=== PATIENT | female | born 1950 | race Caucasian/White ===

== ENCOUNTER 2020-07-06 11:28 | Inpatient (IN) | payer MEDICARE ==
[2020-07-06] VITALS (329 sets, daily range): BP systolic 93–163; BP diastolic 52–114; PULSE 67–109; TEMP 97.9–98.4; O2SAT 61–100
[~2020-07-06] VITALS: Ht 157.5 cm; Wt 49.5 kg
--- NOTE | 2020-07-06 11:40 | NUR ---
Arrives to ICU 4 via [facility] Transferred to bed, monitors applied. Sits up in tri-pod position, complains of back pain. Denies CP at this time.
[2020-07-06] MEDS ORDERED: CRESTOR 10MG10 MG PO (13:07)
[2020-07-06] MEDS ORDERED: PLENDIL 5MG TAB5 MG PO (13:10)
[2020-07-06] MEDS ORDERED: GLUCOTROL10 MG PO (13:13)
[2020-07-06] MEDS ORDERED: NORCO 325 MG-101 TAB PO ×2 (13:14)
[2020-07-06] MEDS ORDERED: IMDUR 30MG30 MG/TAB PO (13:15)
[2020-07-06] MEDS ORDERED: GLUCOPHAGE1000 MG PO (13:15)
[2020-07-06] MEDS ORDERED: NITROSTAT0.4 MG/TAB SL (13:16)
[2020-07-06] MEDS ORDERED: PLAVIX 75MG TAB75 MG PO (13:16)
[2020-07-06] MEDS ORDERED: PROTONIX 40MG T40 MG PO (13:17)
[2020-07-06] MEDS ORDERED: LASIX 40MG TABL40 MG PO (13:18)
[2020-07-06] MEDS ORDERED: CATAPRES 0.1MG0.1 MG PO (13:18)
[2020-07-06] MEDS ORDERED: VENTOLIN0.09 MG IH (13:19)
[2020-07-06 14:31] LABS: BASO # 0.1 (0.0-0.2); BASO % 1.2 % (0.0-2.0); EOS # 0.1 (0.0-0.7); EOS % 0.5 % (0-4.0); GRAN # 8.8 (1.4-6.5); GRAN % 76.7 % (42.2-75.2); HEMOGLOBIN 11.4 g/dl (12.5-16.0); LYMPH # 2.1 (1.2-3.4); LYMPH % 17.9 % (20.0-51.0); MEAN CELL VOLUME 84 fl (80.0-100.0); MEAN CORPUSCULAR HEMOGLOBIN 27 pg (27.0-31.0); MEAN CORPUSCULAR HGB CONC 32 g/dl (33.0-37.0); MEAN PLATELET VOLUME 8.7 fl (7.4-10.4); MONO # 0.4 (0.1-0.6); MONO % 3.4 % (1.7-9.3); PLATELET COUNT 362 K/mm3 (130-400); RED BLOOD COUNT 4.28 M/mm3 (4.10-5.30); REDCELL DISTRIBUTION WIDTH-CV 15.5 % (11.5-14.5)
[2020-07-06 14:32] LABS: HEMATOCRIT 36.1 % (37.0-47.0)
[2020-07-06 14:36] LABS: INR 1.2 (0.8-3.0); PROTHROMBIN TIME 13.2 SECONDS (9.7-12.8)
[2020-07-06 14:38] LABS: PARTIAL THROMBOPLASTIN TIME 25.8 SECONDS (26.0-37.0)
[2020-07-06 14:39] LABS: ALBUMIN 3.7 gm/dL (3.5-5.0); BILIRUBIN,TOTAL 0.6 mg/dL (0.0-1.0); CALCIUM 8.6 mg/dL (8.4-10.2); CHOLESTEROL RISK RATIO 2.7; CREATININE, serum 0.66 (0.52-1.25); MAGNESIUM 1.2 mg/dL (1.6-2.3); POTASSIUM 3.5 mmol/L (3.4-5.0); TOTAL PROTEIN 6.4 gm/dL (6.4-8.2)
[2020-07-06 14:53] LABS: TROPONIN-I 3.47 ng/mL (0.000-0.035)
[2020-07-07] VITALS (470 sets, daily range): BP systolic 104–151; BP diastolic 68–103; PULSE 61–98; TEMP 97.9–98.2; O2SAT 67–100
[2020-07-07 05:36] LABS: CALCIUM 8.3 mg/dL (8.4-10.2); CREATININE, serum 0.74 (0.52-1.25); MAGNESIUM 2.5 mg/dL (1.6-2.3); POTASSIUM 3.8 mmol/L (3.4-5.0)
[2020-07-07 05:55] LABS: TROPONIN-I 3.07 ng/mL (0.000-0.035)
--- NOTE | 2020-07-07 10:00 | NUR ---
To laborer steel handling via bed with RN x1.
--- NOTE | 2020-07-07 12:15 | NUR ---
Returns to room from with RN x1 at side. Report updated on arrival. Patient alert and awake, complaining of back and rib pain. TR band in place, minimal bruising noted but no active bleeding noted
[2020-07-08] VITALS (602 sets, daily range): BP systolic 97–134; BP diastolic 63–89; PULSE 58–86; TEMP 97–98.7; O2SAT 33–100
--- NOTE | 2020-07-08 07:40 | NUR ---
pt to laboratory sample carrier at this time via bed with laboratory sample carrier RN x2.
--- NOTE | 2020-07-08 08:26 | NUR ---
SEE MERGE FOR ALL MEDICATION ADMINISTRATION TIMES, INTRA AND POST SEDATION ASSESSMENTS
--- NOTE | 2020-07-08 09:30 | NUR ---
PT RETURN FROM STORE ADMINISTRATIVE ASSISTANT AT THIS TIME. BEDSIDE REPORT RECEIVED FROM FLORA BRYANT. PT ALERT/ORIENTED X4. DRESSING IN PLACE TO RIGHT WRIST INTACT AND ASSESSED WITH STORE ADMINISTRATIVE ASSISTANT RN ON ARRIVAL TO ROOM. PT REQUESTING PAIN MEDICATION. PRN DILAUDID ADMINISTERED PER EMAR. VS WNL.
--- NOTE | 2020-07-08 11:27 | NUR ---
Dancing Master met with patient to discuss discharge planning. Patient is from [place], [place] but is here in [place] staying with her daughter, Trisha (ph#[phone]) who lives in [facility]. Patient states she plans on moving to [place] soon. Patient does not have primary care established here in [place] but was open to being set up with a physician in [place]. Patient utilizes [facility] in [place] for medications. Patient has a walker but states she does not need it. Patient reports independence with ADLS. Patient reports she lost her in February and has five children. Elsie Rico (ph#[phone]), Jhon Lantigua, Dionicio Lantigua, and Floyd Lantigua. Patient states her three sons have nothing to do with her. SW spoke with patient about DPOA-HC and patient would like to designate her two daughters, Trisha and Elsie. Patient states she does not want her sons making any decisions for her. SW assisted patient in completing DPOA-HC form and patient verbalized understanding of what she was signing. DK and RNJackie provided witness signature. DK provided original and copies to patient, then placed copy in chart. DK updated contact sheet on patient's chart to include Elsie and noted that Trisha and Elsie are patient's DPOA-HC. DK notifed FLORA Mejia of update on contact sheet. Patient states she will return to Trisha's home upon discharge. DK contacted patient's daughter, Trisha to review discharge plan. Trisha is in agreement with patient returning home with her upon discharge. Trisha inquired about patient applying for [place] Medicaid as patient currently has [place] Medicaid. DK advised Trisha that patient can apply for [place] Medicaid once she moves to [place]. SW will continue to follow for discharge needs. Trisha is in agreement
--- NOTE | 2020-07-08 14:30 | NUR ---
NITRO GTT STOPPED AT THIS TIME D/T HYPOTENSION. BP 99/68, HR 63. PT DENIES CP AT THIS TIME.
[2020-07-09] VITALS (335 sets, daily range): BP systolic 99–122; BP diastolic 57–70; PULSE 55–69; TEMP 97.6–98; O2SAT 70–100
[2020-07-09 05:40] LABS: BASO % 0.2 % (0.0-2.0); EOS % 0.2 % (0-4.0); GRAN # 8.6 (1.4-6.5); GRAN % 68.5 % (42.2-75.2); HEMOGLOBIN 10.8 g/dl (12.5-16.0); LYMPH # 3.2 (1.2-3.4); LYMPH % 25.2 % (20.0-51.0); MEAN CELL VOLUME 85 fl (80.0-100.0); MEAN CORPUSCULAR HEMOGLOBIN 27 pg (27.0-31.0); MEAN CORPUSCULAR HGB CONC 31 g/dl (33.0-37.0); MEAN PLATELET VOLUME 9.3 fl (7.4-10.4); MONO # 0.7 (0.1-0.6); MONO % 5.6 % (1.7-9.3); PLATELET COUNT 341 K/mm3 (130-400); RED BLOOD COUNT 4.07 M/mm3 (4.10-5.30); REDCELL DISTRIBUTION WIDTH-CV 15.6 % (11.5-14.5)
[2020-07-09 05:43] LABS: CALCIUM 8.7 mg/dL (8.4-10.2); CREATININE, serum 0.98 (0.52-1.25); POTASSIUM 3.6 mmol/L (3.4-5.0)
[2020-07-09 05:46] LABS: HEMATOCRIT 34.4 % (37.0-47.0)
--- NOTE | 2020-07-09 13:50 | NUR ---
Patient spoke with, FLORA Trujillo as patient is ready to be discharged today. Patient is going to have a follow up appointment scheduled with Cardiology. Patient will be returning to [place] in August for a short time before moving back to [place]. SW met with patient to discuss follow up for primary care and possibly home health. Patient is open to having primary care set up possibly in [place] once she returns to [place] permanently. Patient had an exercise oximetry completed and will not require home oxygen at discharge.
[2020-07-09] MEDS ORDERED: ASPIRIN E.C. 8181 MG PO (14:25)
[2020-07-09] MEDS ORDERED: EFFIENT5 MG PO (14:25)
[2020-07-09] MEDS ORDERED: ZEBETA 5MG5 MG PO (14:25)
[2020-07-09] MEDS ORDERED: ZESTRIL 5MG5 MG PO (14:25)
== END 2020-07-09 15:00 | disposition home or self-care (01) | DRG 246 ==
LOC: ICU 11:28
PROVIDERS: Physician Assistant; ADMIT Internal Medicine
PROC: 027135Z Dilation of Coronary Artery, Two Arteries with Two Drug-eluting Intraluminal Devices, Percutaneous Approach (ICD-10-PCS; principal; 2020-07-08)
PROC: 4A023N7 Measurement of Cardiac Sampling and Pressure, Left Heart, Percutaneous Approach (ICD-10-PCS; 2020-07-08)
PROC: B2111ZZ Fluoroscopy of Multiple Coronary Arteries using Low Osmolar Contrast (ICD-10-PCS; 2020-07-08)
PROC: B2181ZZ Fluoroscopy of Left Internal Mammary Bypass Graft using Low Osmolar Contrast (ICD-10-PCS; 2020-07-08)
DX: I21.4 Non-ST elevation (NSTEMI) myocardial infarction (principal); J96.01 Acute respiratory failure with hypoxia; I50.23 Acute on chronic systolic (congestive) heart failure; M48.00 Spinal stenosis, site unspecified; I25.10 Atherosclerotic heart disease of native coronary artery without angina pectoris; I11.0 Hypertensive heart disease with heart failure; E11.9 Type 2 diabetes mellitus without complications; K21.9 Gastro-esophageal reflux disease without esophagitis; I25.5 Ischemic cardiomyopathy; J44.9 Chronic obstructive pulmonary disease, unspecified; E83.42 Hypomagnesemia; E87.6 Hypokalemia; D72.829 Elevated white blood cell count, unspecified; E78.5 Hyperlipidemia, unspecified; F17.210 Nicotine dependence, cigarettes, uncomplicated; Z79.891 Long term (current) use of opiate analgesic; Z79.84 Long term (current) use of oral hypoglycemic drugs; Z79.02 Long term (current) use of antithrombotics/antiplatelets; Z95.5 Presence of coronary angioplasty implant and graft; Z88.1 Allergy status to other antibiotic agents; Z95.1 Presence of aortocoronary bypass graft; Z95.810 Presence of automatic (implantable) cardiac defibrillator; I08.3 Combined rheumatic disorders of mitral, aortic and tricuspid valves
CPT/HCPCS: 99223-AI; 99232-AI; 99233-AI; 99239; C9604; J1170; J1644; J1815; J1940; J2250; J2405; J3010; J3475; J7030; J7512; Q9967

== ENCOUNTER 2021-06-11 16:50 | Inpatient (IN) | payer MEDICARE ==
[~2021-06-11] VITALS: Ht 157.5 cm; Wt 52.4 kg
[2021-06-11] VITALS (157 sets, daily range): BP systolic 122–127; BP diastolic 84–87; PULSE 85–87; TEMP 96.5–98.5; O2SAT 95–100
[~2021-06-11 16:50] MED LIST changes: -AMOXICILLIN 8751 TAB PO; -ENTRESTO 24 MG1 EACH PO; -HCTZ12.5TAB PO; -MYCELEX10 MG/TAB MM; -RT ADVAIR 128 DISKUS IH; -TRULICITY0.75 MG/0. SQ; -ZOFRAN ODT4 MG PO
--- NOTE | 2021-06-11 17:09 | NUR ---
MD Niko notified of pt arrival to ICU 6
[2021-06-11 17:46] LABS: BASO % 0.1 % (0.0-2.0); EOS % 0.3 % (0-4.0); GRAN # 10.6 K/mm3 (1.4-6.5); GRAN % 73.1 % (42.2-75.2); HEMATOCRIT 43.7 % (37.0-47.0); HEMOGLOBIN 14.7 g/dl (12.5-16.0); LYMPH # 2.8 K/mm3 (1.2-3.4); LYMPH % 19.4 % (20.0-51.0); MEAN CELL VOLUME 86 fl (80.0-100.0); MEAN CORPUSCULAR HEMOGLOBIN 29 pg (27.0-31.0); MEAN CORPUSCULAR HGB CONC 34 g/dl (33.0-37.0); MEAN PLATELET VOLUME 9.1 fl (7.4-10.4); MONO # 0.8 K/mm3 (0.1-0.6); MONO % 5.8 % (1.7-9.3); PLATELET COUNT 491 K/mm3 (130-400); RED BLOOD COUNT 5.07 M/mm3 (4.10-5.30); REDCELL DISTRIBUTION WIDTH-CV 15.3 % (11.5-14.5)
[2021-06-11] MEDS ORDERED: ENTRESTO 24 MG1 EACH PO (17:46)
[2021-06-11] MEDS ORDERED: HCTZ12.5TAB PO (17:50)
[2021-06-11] MEDS ORDERED: TRULICITY0.75 MG/0. SQ (17:50)
[2021-06-11] MEDS ORDERED: RT ADVAIR 128 DISKUS IH (17:51)
[2021-06-11 18:04] LABS: ALBUMIN 3.4 gm/dL (3.4-4.8); BILIRUBIN,TOTAL 0.4 mg/dL (0.2-1.2); CALCIUM 9.1 mg/dL (8.4-10.2); CREATININE, serum 2.06 mg/dL (0.57-1.11); POTASSIUM 4.6 mmol/L (3.5-4.5); TOTAL PROTEIN 7.4 gm/dL (6.2-8.1)
--- NOTE | 2021-06-11 19:11 | NUR ---
MD Niko stated he would call MD Abdoul for consultation
[2021-06-11 19:18] LABS: PH 6 (5-8); SQUAMOUS EPITHELIAL 0-2 /hpf (0-10); URINE APPEARANCE Clear (CLEAR/HAZY); URINE BACTERIA None Seen (NONE SEEN); URINE BILIRUBIN Negative (NEGATIVE); URINE BLOOD Negative (NEGATIVE); URINE COLOR Straw (YELLOW); URINE GLUCOSE 3+ (NEGATIVE); URINE KETONE Negative (NEGATIVE); URINE LEUKOCYTE ESTERASE Negative (NEGATIVE); URINE NITRATE Negative (NEGATIVE); URINE PROTEIN(semi-quant) Negative (NEGATIVE); URINE RBC 0-2 /hpf (0-2); URINE UROBILINOGEN Negative (NEGATIVE); URINE WBC 0-2 /hpf (0-2)
[2021-06-11 19:26] LABS: COLLECTION METHOD CLEAN CATCH
[2021-06-11 20:38] LABS: CALCIUM 8.9 mg/dL (8.4-10.2); CREATININE, serum 1.68 mg/dL (0.57-1.11); POTASSIUM 3.1 mmol/L (3.5-4.5)
--- NOTE | 2021-06-11 20:45 | NUR ---
Assessment complete and charted. Patient alert and orientated. Insulin gtt on hold. Denies needs at this time. Call light in reach.
[2021-06-12] VITALS (112 sets, daily range): BP systolic 89–127; BP diastolic 49–69; PULSE 58–70; TEMP 97.6–99.1; O2SAT 91–100
--- NOTE | 2021-06-12 02:21 | NUR ---
Rating generalized pain 01/10. Provided with [employer].
--- NOTE | 2021-06-12 03:29 | NUR ---
Report given to FLORA Flores
--- NOTE | 2021-06-12 03:30 | NUR ---
RECEIVED REPORT FROM HOSPITAL NURSEBOYD. WAITING ON PATIENT TO TRANSFER OUT FROM ICU TO GO TO ROOM 353.
--- NOTE | 2021-06-12 03:57 | NUR ---
PATIENT ARRIVED TO ROOM 353 VIA W/C WITH MORTGAGE COLLECTOR, BOYD, TRANSPORTING PATIENT.
--- NOTE | 2021-06-12 04:00 | NUR ---
Patient transferred to room 353 at 0350
--- NOTE | 2021-06-12 04:15 | NUR ---
PATIENT COMPLAINING OF NAUSEA AT THIS TIME.
--- NOTE | 2021-06-12 04:39 | NUR ---
REPORTED BY TELE THAT PATIENT HAD 5 BEAT RUN OF V-TACH THAT PATIENT IS NO LONGER IN. PATIENT DENIES CHEST PAIN/SOA. REPORTS NAUSEA IS RESOLVING SINCE ZOFRAN WAS GIVEN.
[2021-06-12 06:43] LABS: MEAN CELL VOLUME 87 fl (80.0-100.0); MEAN CORPUSCULAR HGB CONC 33 g/dl (33.0-37.0); MEAN PLATELET VOLUME 9.2 fl (7.4-10.4); PLATELET COUNT 437 K/mm3 (130-400); RED BLOOD COUNT 4.19 M/mm3 (4.10-5.30)
[2021-06-12 06:54] LABS: HEMATOCRIT 36.3 % (37.0-47.0); HEMOGLOBIN 12.1 g/dl (12.5-16.0); MEAN CORPUSCULAR HEMOGLOBIN 29 pg (27.0-31.0)
[2021-06-12 07:09] LABS: ALBUMIN 2.6 gm/dL (3.4-4.8); CALCIUM 8.1 mg/dL (8.4-10.2); CREATININE, serum 1.49 mg/dL (0.57-1.11); MAGNESIUM 1.5 mg/dL (1.6-2.6); PHOSPHOROUS 2.7 mg/dL (2.3-4.7); POTASSIUM 3.6 mmol/L (3.5-4.5)
--- NOTE | 2021-06-12 07:11 | NUR ---
CHANGE OF SHIFT REPORT GIVEN TO DAY SHIFT RNTATE. PATIENT RESTED IN BED SINCE TRANSFER INTO ROOM FROM ICU. IV FLUIDS INFUSING WITH NO PROBLEMS. DENIES CHEST PAIN/SOA AND NO FURTHER NAUSEA SINCE ARRIVAL TO ROOM.
[2021-06-12 07:47] LABS: EOSINOPHIL 3 % (0-4); LYMPHOCYTE 37 % (20.0-51.0); METAMYELOCYTE 1 % (0-0); NEUTROPHILS 54 % (42.0-75.2); PLATELET ESTIMATE INCREASED (NORMAL)
[2021-06-12 07:48] LABS: ANISOCYTOSIS 1+; HYPOCHROMIA 1+
--- NOTE | 2021-06-12 07:58 | NUR ---
Pt assessment complete. Pt is sitting up in bed upon entry, she is A/O X4. Her breathing is even and unlabored on RA, intermittent wet cough present. Pt denies SOB. Pain "everywhere" 01/10, prn pain medication administered. Pt endorses some nausea, no emesis at this time. IVF infusing per order set. No needs at this time. Call light within reach.
--- NOTE | 2021-06-12 10:29 | NUR ---
Initial visit; Patient thanked [facility] Nurse for offering prayer and God's blessings.
--- NOTE | 2021-06-12 14:37 | NUR ---
quill worker met with patient to discuss discharge plan. Patient reports that she lives at home with her daughter Artemio ([phone]) and Artemio's . Patient reports that she is independent with her activities of daily living and does not utilize any medical equipment to assist with ambulation. Client reports to no oxygen needs within the home. PCP is and she utilizes [facility] for medications with no cost difficulty. Patient reports that she does not have a DPOA-HC and that Artemio is not her only child. Education provided to the patient about a DPOA and form provided to her. Educated the patient that PT has recommending going home with HH PT. Patient is open to this idea and [facility] list provided for the patient to review. Discharge plan: Home with HH
[2021-06-12] MEDS ORDERED: MYCELEX10 MG/TAB MM (15:56)
--- NOTE | 2021-06-12 16:27 | NUR ---
matrix worker followed up with patient about what HH agency she would like to go with [facility]. Referral faxed to [facility] .
--- NOTE | 2021-06-12 23:12 | NUR ---
PT IS PLEASANT AND COOPERATIVE. MEDICATIONS AND ASSESSMENT DONE AT THE SAME TIME. PT TOOK ALL MEDICATIONS AND STATED PAIN WAS DOWN TO A 4/10. PT GETS UP AND AMBULATES WITH EASE. PT IS ALERT AND ORIENTATED AND INQUIRED ABOUT MOST RECENT BLOOD SUGAR. PT STATES NO OTHER NEEDS, CALL LIGHT IN REACH.
[2021-06-13 00:14] VITALS: BP 122/61; PULSE 58; TEMP 98.1
[2021-06-13 05:37] VITALS: BP 134/75; PULSE 96; TEMP 98.2
[2021-06-13 06:50] LABS: HEMOGLOBIN 11.2 g/dl (12.5-16.0); MEAN CELL VOLUME 87 fl (80.0-100.0); MEAN CORPUSCULAR HEMOGLOBIN 28 pg (27.0-31.0); MEAN CORPUSCULAR HGB CONC 33 g/dl (33.0-37.0); PLATELET COUNT 392 K/mm3 (130-400); RED BLOOD COUNT 3.96 M/mm3 (4.10-5.30); REDCELL DISTRIBUTION WIDTH-CV 15.2 % (11.5-14.5)
[2021-06-13 07:02] LABS: HEMATOCRIT 34.5 % (37.0-47.0)
[2021-06-13 07:31] LABS: ALBUMIN 2.8 gm/dL (3.4-4.8); CALCIUM 7.8 mg/dL (8.4-10.2); CREATININE, serum 0.91 mg/dL (0.57-1.11); MAGNESIUM 2.6 mg/dL (1.6-2.6)
[2021-06-13 08:04] VITALS: BP 145/67; PULSE 53; TEMP 97.7
--- NOTE | 2021-06-13 08:06 | NUR ---
JAVON AVILA NOTIFIED OF PT VOMITING, ORDERED TO GIVE ZOFRAN EARLY, PHENERGAN ADDED ON
--- NOTE | 2021-06-13 08:30 | NUR ---
PT PLEASANT, AOX4, REPORTING VOMITING, ZOFRAN GIVEN, ASSESSMENT PERFOMRED, MEDICATIONS GIVEN, NO OTHER NEEDS
[2021-06-13 08:48] LABS: ANISOCYTOSIS 1+; BAND 1 % (0-10); HYPOCHROMIA 1+; LYMPHOCYTE 33 % (20.0-51.0); NEUTROPHILS 62 % (42.0-75.2); PLATELET ESTIMATE NORMAL (NORMAL)
[2021-06-13] MEDS ORDERED: ZOFRAN ODT4 MG PO (09:29)
[2021-06-13] MEDS ORDERED: AMOXICILLIN 8751 TAB PO (09:29)
--- NOTE | 2021-06-13 11:31 | NUR ---
Initial visit attempt; Housekeeping with patient, Hr Payroll Coordinator left her card so patient knows there is a Hr Payroll Coordinator available should she wish to visit or have prayer said.
[2021-06-13 11:38] VITALS: BP 150/70; PULSE 64; TEMP 97.6
--- NOTE | 2021-06-13 12:00 | NUR ---
PT REQUESTING PAIN MEDICATIONS BEFORE SHE LEAVES THE HOSPITAL. JAVON AVILA CALLED AND SAID IT WAS OK TO GIVE DOSE EARLY. DOSE GIVEN, PT REPORTING NAUSEA SO PHENERGAN MADE IN PHARMACY AND GIVEN BEFORE DISCHARGE. INSULIN GIVEN AND PT SENT WITH SANDWICH BOX. DISCHARGE EDUCATION PROVIDED TO PT, QUESTIONS ANSWERED, IV REMOVED, NO OTHER NEEDS AT THIS TIME
--- NOTE | 2021-06-13 12:39 | NUR ---
SW informed that patient would be discharging and needed to have documenation sent to [facility]. SW contacted [facility] to inform staff member that documentation on patient's discharge was sent. Nothing further.
== END 2021-06-13 12:00 | disposition home health service (06) | DRG 638 ==
LOC: MEDICAL 16:50 → ICU 16:50 → MEDICAL 06-12 03:18
PROVIDERS: Internal Medicine; ADMIT Internal Medicine
DX: E11.00 Type 2 diabetes mellitus with hyperosmolarity without nonketotic hyperglycemic-hyperosmolar coma (NKHHC) (principal); I50.22 Chronic systolic (congestive) heart failure; N17.9 Acute kidney failure, unspecified; E87.1 Hypo-osmolality and hyponatremia; I11.0 Hypertensive heart disease with heart failure; I25.10 Atherosclerotic heart disease of native coronary artery without angina pectoris; E78.5 Hyperlipidemia, unspecified; F17.210 Nicotine dependence, cigarettes, uncomplicated; G89.29 Other chronic pain; J43.9 Emphysema, unspecified; M54.9 Dorsalgia, unspecified; M48.00 Spinal stenosis, site unspecified; K21.9 Gastro-esophageal reflux disease without esophagitis; E83.42 Hypomagnesemia; B37.9 Candidiasis, unspecified; D72.829 Elevated white blood cell count, unspecified; T38.3X6A Underdosing of insulin and oral hypoglycemic [antidiabetic] drugs, initial encounter; Z91.138 Patient's unintentional underdosing of medication regimen for other reason; Z23 Encounter for immunization; Z95.1 Presence of aortocoronary bypass graft; Z95.810 Presence of automatic (implantable) cardiac defibrillator; Z79.84 Long term (current) use of oral hypoglycemic drugs; Z79.82 Long term (current) use of aspirin
CPT/HCPCS: 99223-AI; 99232-AI; 99239; J1644; J1815; J2405; J2550; J3475; J7030

== ENCOUNTER → 2021-06-11 | Outpatient (CLI) | payer OTHER ==
[2021-06-11] VITALS (17 sets, daily range): O2SAT 97–100
[~2021-06-11] MED LIST: AMOXICILLIN 8751 TAB PO; ASPIRIN E.C. 8181 MG PO; CATAPRES 0.1MG0.1 MG PO; CRESTOR 10MG10 MG PO; EFFIENT5 MG PO; ENTRESTO 24 MG1 EACH PO; GLUCOPHAGE1000 MG PO; GLUCOTROL10 MG PO; HCTZ12.5TAB PO; IMDUR 30MG30 MG/TAB PO; LASIX 40MG TABL40 MG PO; MYCELEX10 MG/TAB MM; NITROSTAT0.4 MG/TAB SL; NORCO 325 MG-101 TAB PO; PLAVIX 75MG TAB75 MG PO; PLENDIL 5MG TAB5 MG PO; PROTONIX 40MG T40 MG PO; RT ADVAIR 128 DISKUS IH; TRULICITY0.75 MG/0. SQ; VENTOLIN0.09 MG IH; ZEBETA 5MG5 MG PO; ZESTRIL 5MG5 MG PO; ZOFRAN ODT4 MG PO
[2021-06-11 13:21] LABS: HEMATOCRIT 43.5 % (37.0-47.0); HEMOGLOBIN 14.5 g/dl (12.5-16.0); MEAN CELL VOLUME 86 fl (80.0-100.0); MEAN CORPUSCULAR HEMOGLOBIN 29 pg (27.0-31.0); MEAN CORPUSCULAR HGB CONC 33 g/dl (33.0-37.0); MEAN PLATELET VOLUME 9.1 fl (7.4-10.4); PLATELET COUNT 484 K/mm3 (130-400); RED BLOOD COUNT 5.07 M/mm3 (4.10-5.30); REDCELL DISTRIBUTION WIDTH-CV 15.1 % (11.5-14.5)
[2021-06-11 13:43] LABS: ALBUMIN 3.4 gm/dL (3.4-4.8); BILIRUBIN,TOTAL 0.4 mg/dL (0.2-1.2); CALCIUM 9.2 mg/dL (8.4-10.2); CREATININE, serum 1.77 mg/dL (0.57-1.11); POTASSIUM 4.1 mmol/L (3.5-4.5)
[2021-06-11 14:11] LABS: LYMPHOCYTE 26 % (20.0-51.0); NEUTROPHILS 67 % (42.0-75.2); PLATELET ESTIMATE INCREASED (NORMAL)
== END ==
LOC: COL.LAB 12:12
PROVIDERS: Family Medicine
DX: J43.9 Emphysema, unspecified (principal); Z95.0 Presence of cardiac pacemaker